=== PATIENT | female | born 1960 | race Two or more races ===

== ENCOUNTER → 2025-02-22 | Emergency (ER) | payer OTHER ==
[~2025-02-22] VITALS: Ht 170.2 cm; Wt 113.4 kg
[~2025-02-22] MED LIST: CARVEDILOL12.5 MG; COZAAR25 MG; GLIPIZIDE XL2.5 MG; HYDRALAZINE HCL25 MG; KETOROLAC TROMETHAMINE 60 MG VIAL IM ONE; KETOROLAC TROMETHAMINE 60 MG VIAL IM STA; METFORMIN HCL500 M3; SIMVASTATIN5 MG
== END | disposition home or self-care (01) ==
LOC: ER 10:35
DX: S00.93XA Contusion of unspecified part of head, initial encounter (principal); S30.0XXA Contusion of lower back and pelvis, initial encounter; W10.8XXA Fall (on) (from) other stairs and steps, initial encounter; Y93.89 Activity, other specified; Y92.012 Bathroom of single-family (private) house as the place of occurrence of the external cause; Y99.9 Unspecified external cause status; E11.9 Type 2 diabetes mellitus without complications; Z79.84 Long term (current) use of oral hypoglycemic drugs; I10 Essential (primary) hypertension